=== PATIENT | female | born 1945 | race Caucasian/White ===

== ENCOUNTER 2016-11-02 00:56 | Emergency (ER) | payer MEDICARE, OTHER ==
[2016-11-02] MEDS ORDERED: MAGNESIUM HYDROXIDE/AL HYDROX 30 ML UDC PO ONE (01:28)
[2016-11-02] MEDS ORDERED: Lidocaine 2%Visc 15ml 20 MG/ML UDC ONE (01:28)
[2016-11-02] MEDS ORDERED: 0.9 % SODIUM CHLORIDE 50 ML IV ONE (01:33)
[2016-11-02] MEDS ORDERED: PANTOPRAZOLE SODIUM INJ. 40 MG VIAL ONE (01:33)
[2016-11-02] MEDS: MAG HYDROX/AL HYDROX/SIMETH 30 ML, Lidocaine 2%Visc 15ml 20 MG, PHENobarb/HYOSCY/ATROPI... PO ONE ×3 (01:40)
[2016-11-02] MEDS: PANTOPRAZOLE SODIUM 40 MG in 0.9 % SODIUM CHLORIDE 50 ML IV SCH (01:40)
[2016-11-02 01:42] LABS: BASOPHILS % 0.5 (0.0-1.5); EOSINOPHILS % 2.2 % (0.0-6.8); LYMPHOCYTES # 3.3 # k/uL (0.6-4.0); MEAN CORPUSCULAR HEMOGLOBIN 32.2 pg (28.0-34.0); MONOCYTES # 0.3 # k/uL (0.0-0.9); MONOCYTES % 3.7 % (0.0-11.0); NEUTROPHILS # 4.9 # k/uL (1.4-7.7)
[2016-11-02 01:53] LABS: eGFR (African) > 60; eGFR (Non-African) > 60
--- NOTE | 2016-11-02 02:29 | ED Physician Documentation ---
General Adult - HISTORIAN Historian: patient - HPI Stated Complaint: sudden onset of abd pain Chief Complaint: General Adult Onset: hours Timing: still present Severity: moderate Further Comments: yes (Pt is a 71 yo female with fairly rapid onset of epigastric pain. No chest pain per se or unusual sob. Pt had mild transient nausea.) - ROS CONST: no problems EYES/ENT: none CVS/RESP: shortness of breath (chronic). denies: chest pain GI/: abdominal pain (epigastric), nausea (mild) MS/SKIN/LYMPH: none - PAST HX Past History: other (DM, COPD on home O2 at night, hypothyroidism, fibromyalgia , mitral valve prolapse.) Surgeries/Procedures: other (ortho) Allergies/Adverse Reactions: Allergies Allergy/AdvReac Type Severity Reaction Status Date / Time erythromycin base Allergy Verified 11/02/16 01:18 Home Medications: Ambulatory Orders Medication Instructions Recorded Ranitidine HCl 150 mg PO BID #60 tablet 11/02/16 - SOCIAL HX Smoking History: cigarettes - FAMILY HX Family History: No - VITAL SIGNS Vital Signs: Vital Signs Temp Pulse Resp BP Pulse Ox 98.4 F 85 20 132/55 90 L 11/02/16 00:56 11/02/16 02:00 11/02/16 00:56 11/02/16 00:56 11/02/16 02:00 - REVIEWED ASSESSMENTS Nursing Assessment Reviewed: Yes Vitals Reviewed: Yes Progress - Progress Progress: CXR: No acute process. Abd x-ray: 1. Mild moderate in stool within the colon. 2. No evidence of bowel obstruction. GI cocktail Protonix 40 mg IV sx resolved Rx Ranitidine 150 mg po bid. f/u pcp. - EKG/XRAY/CT EKG: NSR (HR=80; non-specific T-wave abnormality.) ED Results Lab/Radiology - Lab Results Lab Results: Lab Results 11/02/16 11/02/16 11/02/16 01:35 01:34 01:34 WBC 8.80 K/ul K/ul (4.00-12.00) RBC 4.66 M/ul M/ul (3.90-5.20) Hgb 15.0 g/dL g/dL (12.0-16.0) Hct 44.5 % % (34.5-46.5) MCV 95.4 fl fl (80.0-100.0) MCH 32.2 pg pg (28.0-34.0) MCHC 33.7 g/dL g/dL (30.0-36.0) RDW 13.1 % % (11.3-14.3) Plt Count 323 K/mm3 K/mm3 (130-400) Neut % (Auto) 54.9 % % (39.0-79.0) Lymph % (Auto) 37.0 % % (16.0-50.0) [place] % (Auto) 3.7 % % (0.0-11.0) Eos % (Auto) 2.2 % % (0.0-6.8) Baso % (Auto) 0.5 (0.0-1.5) Neut # 4.9 # k/uL # k/uL (1.4-7.7) Lymph # 3.3 # k/uL # k/uL (0.6-4.0) [place] # 0.3 # k/uL # k/uL (0.0-0.9) Eos # 0.2 # k/uL # k/uL (0.0-0.6) Baso # 0.0 # k/uL # k/uL (0.0-0.5) Reactive Lymphs % 1.6 % % (0.0-5.0) Reactive Lymphs # 0.1 # k/uL # k/uL (0.0-0.8) Sodium 145 mmol/L mmol/L (136-145) Potassium 3.7 mmol/L mmol/L (3.5-5.0) Chloride 104 mmol/L mmol/L (98-110) Carbon Dioxide 34 mmol/L H mmol/L (20-32) BUN 14 mg/dL mg/dL (10-26) Creatinine 0.6 mg/dL mg/dL (0.4-1.5) Est GFR ( Amer) > 60 (60 - ) Est GFR (Non-Af Amer) > 60 (60 - ) Glucose 105 mg/dL H mg/dL (70-99) Calcium 9.9 mg/dL mg/dL (8.5-10.5) Total Bilirubin 0.4 mg/dL mg/dL (0.2-1.2) AST 112 U/L H U/L (0-41) ALT 50 U/L H U/L (0-45) Alkaline Phosphatase 69 U/L U/L (46-116) Creatine Kinase 28 U/L U/L (0-225) Troponin I < 0.03 ng/mL L ng/mL (0.03-0.06) Total Protein 7.6 g/dL g/dL (6.0-8.5) Albumin 4.6 g/dL g/dL (3.0-5.5) Amylase 28 U/L U/L (20-104) - Orders Orders: ED Orders Category Date Time Status Continuous EKG monitoring Q30M Care 11/02/16 01:27 Active Continuous Pulse Oximetry Q30M Care 11/02/16 01:[address] Saline Lock/IV NOW Care 11/02/16 01:27 Active ABDOMEN 1 VIEW [RAD] Stat Exams 11/02/16 Taken CHEST 1 VIEW [RAD] Stat Exams 11/02/16 01:27 Taken AMYLASE Routine Lab 11/02/16 01:35 Completed CBC/PLATELET/DIFF Routine Lab 11/02/16 01:34 Completed CMP Routine Lab 11/02/16 01:35 Completed CREATINE KINASE Routine Lab 11/02/16 01:35 Completed TROPONIN I (cTnI) Stat Lab 11/02/16 01:34 Completed 0.9 % Sodium Chloride [Sodium Chloride] 50 ml Med 11/02/16 01:33 Discontinued IV .STK-MED Lidocaine 2%Visc 15ml [Xylocaine] Med 11/02/16 01:28 Discontinued 300 mg .ROUTE .STK-MED ONE Mag Hydrox/Al Hydrox/Simeth [Mylanta] 30 ml Med 11/02/16 01:29 Discontinued Lidocaine 2%Visc 15ml [Xylocaine] 20 mg PHENobarb/HYOSCY/ATROPINE/SCOP [] 10 ml PO NOW Magnesium Hydroxide/Al Hydrox [Maalox] Med 11/02/16 01:28 Discontinued 30 ml PO .STK-MED ONE Pantoprazole Sodium [Protonix] Med 11/02/16 01:33 Discontinued 40 mg .ROUTE .STK-MED ONE Pantoprazole Sodium [Protonix] 40 mg Med 11/02/16 09:00 Ordered 0.9 % Sodium Chloride [Sodium Chloride] 50 ml IV DAILY EKG WITH COMPARISON Stat Ther 11/02/16 01:27 Ordered General Adult Physical Exam - PHYSICAL EXAM GENERAL APPEARANCE: moderate distress EENT: ENT inspection normal NECK: normal inspection, supple RESPIRATORY: no resp distress, chest non-tender, breath sounds normal CVS: reg rate & rhythm, heart sounds normal ABDOMEN: soft, no organomegaly, tenderness (epigastric), decreased BS BACK: normal inspection, no CVA tenderness SKIN: warm/dry, normal color EXTREMITIES: non-tender, normal range of motion, no evidence of injury NEURO: oriented X3, motor nml, sensation nml Discharge Clincal Impression: GERD (gastroesophageal reflux disease) Qualifiers: Esophagitis presence: esophagitis presence not specified Qualified Code(s): K21.9 - Gastro-esophageal reflux disease without esophagitis Prescriptions: Ranitidine HCl 150 mg PO BID #60 tablet Referrals: Jannette Mason MD [Primary Care Provider] - 2 Days Home Medications: Ambulatory Orders Ranitidine HCl 150 mg PO BID #60 tablet 11/02/16 Condition: Good Disposition: 01 HOME, SELF-CARE Decision to Admit: NO Decision Time: 02:29
[2016-11-02 02:50] VITALS: BP 97/51
--- NOTE | 2016-11-02 05:49 | Diagnostic Imaging Report ---
Report Submission Date: Nov 02, 2016 2:08:21 AM COUNTER INTELLIGENCE Patient ~ Study Name: SARAHI HAWKINS ~ Date: Nov 02, 2016 1:51:12 AM COUNTER INTELLIGENCE ~ Modality Type: CR Gender: F ~ Description: ABDOMEN : 49 ~ Institution: [facility] Physician: ROMANA SAN ~ ~ ~ ~ Abdomen AP view. History: Pain. Findings: The bowel gas pattern is normal without obstruction. Mild amount of retained stool present. There is levoscoliosis and lumbar spondylosis noted. There is evidence of previous internal fixation of the right proximal femur. Impression: 1. Mild moderate in stool within the colon. 2. No evidence of bowel obstruction. ~ Electronically signed on Nov 02, 2016 2:08:21 AM COUNTER INTELLIGENCE by: Adalid JEREZ
--- NOTE | 2016-11-02 05:50 | Diagnostic Imaging Report ---
Report Submission Date: Nov 02, 2016 2:09:16 AM RECIPROCATING DRILL OPERATOR Patient ~ Study Name: SARAHI HAWKINS ~ Date: Nov 02, 2016 1:52:36 AM RECIPROCATING DRILL OPERATOR ~ Modality Type: CR Gender: F ~ Description: CHEST : 49 ~ Institution: [facility] Physician: ROMANA SAN ~ ~ ~ ~ Chest, 1 view History: ~Chest pain Findings: Comparison is made to examinations arch 2015. The lungs remain hyperinflated. ~The heart size is normal. Calcified granulomas are present in the lung. Otherwise, the lungs are clear. There is no pleural effusion or pneumothorax identified. The osseous structures are normal. Impression: 1. No acute pulmonary disease. ~ Electronically signed on Nov 02, 2016 2:09:16 AM RECIPROCATING DRILL OPERATOR by: Adalid JEREZ
== END 2016-11-02 02:40 | disposition home or self-care (01) ==
LOC: ED 00:56
DX: K21.9 Gastro-esophageal reflux disease without esophagitis (principal)
CPT/HCPCS: 71010; 74000; 80053; 82150; 82550; 84484; 85025; 93005; A9270; 96365; 99283; 99284; S1016

== ENCOUNTER 2016-11-04 18:31 | Emergency (ER) | payer MEDICARE, OTHER ==
[2016-11-04] MEDS ORDERED: 0.9 % SODIUM CHLORIDE 1,000 ML IV ONE (19:28)
[2016-11-04] MEDS ORDERED: KETOROLAC TROMETHAMINE 30 MG/1ML VIAL IVP ONE (19:28)
[2016-11-04] MEDS ORDERED: HYOSCYAMINE SULFATE 0.125 MG TAB.SUBL SL ONE (19:28)
[2016-11-04] MEDS ORDERED: METOCLOPRAMIDE HCL 5 MG TABLET PO ONE (19:30)
[2016-11-04] MEDS ORDERED: Lidocaine 2%Visc 15ml 20 MG/ML UDC PO ONE (19:32)
[2016-11-04] MEDS ORDERED: MAG HYDROX/AL HYDROX/SIMETH 30 ML UDC PO ONE (19:33)
[2016-11-04] MEDS ORDERED: PANTOPRAZOLE SODIUM 40 MG TABLET PO ONE (21:56)
[2016-11-04 22:29] VITALS: BP 108/61
[2016-11-05 06:06] LABS: APPEARANCE,URINE CLEAR (CLEAR); COLOR,URINE AMBER (YELLOW); OCCULT BLOOD,URINE TRACE-INTACT (NEGATIVE); PH URINE 5.5 (5.0 - 8.0); UROBILINOGEN URINE 0.2 Eu (0.2-1.0)
--- NOTE | 2016-11-05 10:28 | ED Physician Documentation ---
Abdominal Pain - HISTORIAN Historian: patient - HPI Stated Complaint: N/V Chief Complaint: Abdominal Pain Additonal Information: right upper quadrant and n/v Onset: days ago (2) Duration: waxing, waning Timing: other (had resolved, now back) Context: denies: out of country travel, bad food, recent trauma Severity: moderate Quality: pain, sharp Associated Symptoms: nausea, vomiting Exacerbated by: nothing Relieved by: nothing Further Comments: no - ROS CONST: no problems GI/: none CVS/RESP: none EYES/ENT: none MS/SKIN/LYMPH: ankle swelling NEURO/PSYCH: none - SOCIAL HX Smoking History: secondhand, cigarettes Alcohol Use: none Drug Use: none - FAMILY HX Family History: no significant history - PAST HX Past History: peptic ulcer, GERD Ischemic Bowel Risk Factors: none Other History: diabetes Type 2 Surgeries/Procedures: none Immunizations: referred to PCP Home Medications: Ambulatory Orders Medication Instructions Recorded Ranitidine HCl 150 mg PO BID #60 tablet 11/02/16 Allergies/Adverse Reactions: Allergies Allergy/AdvReac Type Severity Reaction Status Date / Time erythromycin base AdvReac Nausea/Vomi Verified 11/04/16 19:13 ting - VITAL SIGNS Vital Signs: Vital Signs Temp Pulse Resp BP Pulse Ox 97.7 F 86 18 108/61 95 11/04/16 22:00 11/04/16 22:00 11/04/16 22:00 11/04/16 22:00 11/04/16 22:00 - REVIEWED ASSESSMENTS Nursing Assessment Reviewed: Yes Vitals Reviewed: Yes Progress - Results/Orders Results/Orders: ua, ct abdpmen/pelvis ordered - Progress Progress: pt. given 40 mg Protonix p.o., hyoscyamine 0.25 mg p.o., Toradol 30 mg IV, Reglan 10 mg IV, 0.9 ns 1 liter ivpb, 2% viscous lidocaine 15 cc p.o. and 30 cc Mylanta p.o. in er with improvement Critical Care Note - Critical Care Note Total Time (mins): 0 ED Results Lab/Radiology - Lab Results Lab Results: Lab Results 11/04/16 20:45 Urine Color Mei (YELLOW) Urine Appearance Clear (CLEAR) Urine pH 5.5 (5.0 - 8.0) Ur Specific [place] 1.010 (1.010-1.030) Urine Protein Negative mg/dL mg/dL (NEGATIVE) Urine Ketones Trace mg/dL H mg/dL (NEGATIVE) Urine Occult Blood Trace-intact H (NEGATIVE) Urine Nitrite Negative (NEGATIVE) Urine Bilirubin 2+ H (NEGATIVE) Urine Urobilinogen 0.2 Eu Eu (0.2-1.0) Ur Leukocyte Esterase Negative (NEGATIVE) Urine Glucose Negative mg/dL mg/dL (NEGATIVE) - Radiology Radiology Impressions: ct scan of abdomen shows no pathology relevant to pt's symptoms - Orders Orders: ED Orders Category Date Time Status Place Saline Lock/IV Now Care 11/04/16 19:[address] ABD & PELVIS W/ CON Routine Exams 11/04/16 19:31 Taken UA MACRO DIP ONLY Routine Lab 11/04/16 20:45 Completed 0.9 % Sodium Chloride [Normal Saline] 1,000 ml Med 11/04/16 19:28 Discontinued IV Q1H Hyoscyamine Sulfate [Oscimin Sl] Med 11/04/16 19:28 Discontinued 0.25 mg SL NOW ONE Ketorolac Tromethamine [Toradol] Med 11/04/16 19:28 Discontinued 30 mg IVP NOW ONE Lidocaine 2%Visc 15ml [Xylocaine] Med 11/04/16 19:32 Discontinued 30 mg PO NOW ONE Mag Hydrox/Al Hydrox/Simeth [Mylanta] Med 11/04/16 19:33 Discontinued 30 ml PO NOW ONE Metoclopramide HCl [Reglan] Med 11/04/16 19:30 Discontinued 10 mg PO NOW ONE Pantoprazole Sodium [Protonix] Med 11/04/16 21:56 Discontinued 40 mg PO NOW ONE Abdominal Pain Physical Exam - Physical Exam General Appearance: alert, moderate distress EENT: eye inspection normal, ENT inspection normal, pharynx normal, no signs of dehydration, ALIE, no nystagmus, TM's nml NECK: normal inspection, thyroid normal, supple RESPIRATORY: no resp distress, chest non-tender, breath sounds normal CVS: reg rate & rhythm, heart sounds normal, equal pulses, no murmur, no gallop , PMI nml, no JVD, no friction rub ABDOMEN: soft, no organomegaly, normal bowel sounds, no abdominal bruit, no distension, tenderness (right upper quadrant and epigastrium) BACK: normal inspection, no CVA tenderness SKIN: warm/dry, normal color EXTREMITIES: non-tender, normal range of motion, no evidence of injury, no edema NEURO: oriented X3, CN's nml as tested, motor nml, sensation nml, mood/affect nml, cognition normal Vital Signs: Vital Signs Temp Pulse Resp BP Pulse Ox 97.7 F 86 18 108/61 95 11/04/16 22:00 11/04/16 22:00 11/04/16 22:00 11/04/16 22:00 11/04/16 22:00 Discharge Clincal Impression: Duodenitis Referrals: Jannette Mason MD [Primary Care Provider] - 2 Days Home Medications: Ambulatory Orders Ranitidine HCl 150 mg PO BID #60 tablet 11/02/16 Comments: ischarged in stable and improved condition with scripts for Protonix 40 mg 1 p.o. daily #15, Bentyl 20 #10 1 p.o. qid prn pain. Condition: Stable Disposition: 01 HOME, SELF-CARE Decision to Admit: NO Decision Time: 21:50
--- NOTE | 2016-11-05 11:14 | Diagnostic Imaging Report ---
BOB GREY [facility] [address] [facility] [address] [place], [place]. [address] Report Submission Date: Nov 04, 2016 8:58:27 PM GROCERY SUPERVISOR Patient Study Name: SARAHI HAWKINS Date: Nov 04, 2016 8:28:49 PM GROCERY SUPERVISOR Modality Type: CT\SR Gender: F Description: CT ABD & PELVIS W/ CON : 49 Institution: [facility] Physician: BOB GREY CT abdomen and pelvis with contrast Date of study: November 04, 2016. CLINICAL HISTORY: CT A/P WITH CONTRAST, ABDOMINAL PAIN, NAUSEA/ VOMITING (Hx) / ABD PAIN (DICOM Hx) TECHNIQUE: 1.3 mm and 5 mm contiguous axial images of the abdomen and pelvis with IV contrast. With; 87 CC OMNIPAQUE FINDINGS: There are no comparison studies. The lung bases are clear. Abdomen: The liver, pancreas and spleen are normal in appearance. The gallbladder is unremarkable. The kidneys enhance appropriately and symmetrically. The aorta is normal in caliber. The small and large bowel are nondistended. There is no evidence of free air or free fluid. Pelvis: There is a 2.6 cm size mass in the cecum that may represent lipomatous hypertrophy of the ileocecal valve, however, malignancy cannot be excluded and correlation with followup colonoscopy is recommended. The distal ureters and bladder are normal. There is no evidence of free air or free fluid. Diverticulosis of sigmoid colon is present without evidence of inflammatory changes to suggest acute diverticulitis. The remaining pelvic structures are within normal limits and the bones of the pelvis are intact. There is artifact associated with a right femoral fixation screw. Multilevel degenerative lumbar spondylosis as noted. There is disc bulging at L2/L3, L3/L4 and L4/L5. IMPRESSION: 2.6 cm size mass in the cecum that may represent hypertrophy of the ileocecal valve, however, correlation with followup colonoscopy is recommended. Sigmoid colon diverticulosis. Electronically signed on Nov 04, 2016 8:58:27 PM GROCERY SUPERVISOR by: Juan Daniel JEREZ
== END 2016-11-04 22:00 | disposition home or self-care (01) ==
LOC: ED 18:31
DX: K29.80 Duodenitis without bleeding (principal)
CPT/HCPCS: 74177; 81002; A9270; J1885; J7030; Q9966; 96361; 96374; 96375; 99283; 99284; S1016

== ENCOUNTER 2016-12-22 09:23 | Outpatient (CLI) | payer MEDICARE, OTHER ==
[2016-12-22 10:17] LABS: eGFR (African) > 60; eGFR (Non-African) > 60
== END 2016-12-22 09:24 ==
LOC: LAB 09:23
PROVIDERS: ATTEND Family Medicine
DX: E11.9 Type 2 diabetes mellitus without complications (principal); E03.9 Hypothyroidism, unspecified
CPT/HCPCS: 36415; 80053; 80061; 83036; 84443

== ENCOUNTER 2017-03-13 09:45 | Emergency (ER) | payer MEDICARE, OTHER ==
[2017-03-13] MEDS ORDERED: 0.9 % SODIUM CHLORIDE 500 ML IV ONE (10:12)
[2017-03-13] MEDS ORDERED: ONDANSETRON HCL/PF 4 MG/ 2ML VIAL IVP ONE (10:13)
[2017-03-13] MEDS ORDERED: MAG HYDROX/AL HYDROX/SIMETH 30 ML, Lidocaine 2%Visc 15ml 20 MG, PHENobarb/HYOSCY/ATROPI... PO ONE ×3 (10:16)
[2017-03-13] MEDS ORDERED: Lidocaine 2%Visc 15ml 20 MG/ML UDC ONE (10:19)
[2017-03-13] MEDS ORDERED: MAGNESIUM HYDROXIDE/AL HYDROX 30 ML UDC PO ONE (10:19)
[2017-03-13] MEDS ORDERED: PANTOPRAZOLE SODIUM INJ. 40 MG VIAL ONE (10:30)
[2017-03-13] MEDS ORDERED: 0.9 % SODIUM CHLORIDE 50 ML IV ONE (10:30)
[2017-03-13 10:37] LABS: APPEARANCE,URINE Clear (CLEAR); COLOR,URINE Amber (YELLOW); OCCULT BLOOD,URINE Trace-intact (NEGATIVE); UROBILINOGEN URINE 0.2 Eu (0.2-1.0)
[2017-03-13 10:40] LABS: BASOPHILS % 0.4 (0.0-1.5); EOSINOPHILS % 0.5 % (0.0-6.8); MEAN CORPUSCULAR HEMOGLOBIN 29.5 pg (28.0-34.0); MEAN CORPUSCULAR VOLUME 94.5 fl (80.0-100.0); MONOCYTES % 2.9 % (0.0-11.0)
[2017-03-13 10:55] LABS: eGFR (African) > 60; eGFR (Non-African) > 60
[2017-03-13] MEDS ORDERED: PANTOPRAZOLE SODIUM 40 MG in 0.9 % SODIUM CHLORIDE 50 ML IV SCH (11:00)
[2017-03-13] MEDS ORDERED: 0.9 % SODIUM CHLORIDE 1,000 ML IV ONE (11:40)
--- NOTE | 2017-03-13 12:03 | ED Physician Documentation ---
General Adult - HISTORIAN Historian: patient - HPI Stated Complaint: Nausea Chief Complaint: General Adult Onset: days ago (1) Timing: still present Severity: moderate Further Comments: yes (Pt is a 72 yo female with abd pain and nausea. Pt has had similar sx in the past, which were attributed to IBS or GERD. Pt has temp 99.1 on presentation. Pt has had normal bm's and voids.) - ROS CONST: other (malaise) EYES/ENT: none CVS/RESP: none GI/: abdominal pain, vomiting, nausea MS/SKIN/LYMPH: none - PAST HX Past History: other (COPD, Depression, DM, Fibromyalgia, GERD, Thyroid d/o) Surgeries/Procedures: other (R TKA, R hip, partial hysterectomy) Allergies/Adverse Reactions: Allergies Allergy/AdvReac Type Severity Reaction Status Date / Time erythromycin base AdvReac Nausea/Vomi Verified 03/13/17 09:58 ting Home Medications: Ambulatory Orders Medication Instructions Recorded Ranitidine HCl 150 mg PO BID #60 tablet 11/02/16 Pantoprazole Sodium [Protonix] 40 mg PO DAILY 03/13/17 - SOCIAL HX Smoking History: cigarettes - FAMILY HX Family History: No - VITAL SIGNS Vital Signs: Vital Signs Temp Pulse Resp BP Pulse Ox 98.3 F 95 H 16 102/55 94 03/13/17 10:01 03/13/17 10:01 03/13/17 10:01 03/13/17 10:01 03/13/17 10:01 - REVIEWED ASSESSMENTS Nursing Assessment Reviewed: Yes Vitals Reviewed: Yes Progress - Progress Progress: NS 500 cc IVF bolus, then 100 cc/hr Zofran 4 mg IV GI cocktail Rocephin 1 gm IV Transfer to [facility], Dr. Starr. General Adult Physical Exam - PHYSICAL EXAM GENERAL APPEARANCE: moderate distress EENT: eye inspection normal, pharynx normal NECK: normal inspection, supple RESPIRATORY: no resp distress, chest non-tender, breath sounds normal CVS: reg rate & rhythm, heart sounds normal ABDOMEN: soft, tenderness (moderate mid abd tenderness), decreased BS BACK: normal inspection, no CVA tenderness SKIN: warm/dry, normal color EXTREMITIES: non-tender NEURO: oriented X3, motor nml, sensation nml Discharge Clincal Impression: pancreatitis with elevated LFT's Referrals: Jannette Mason MD [Primary Care Provider] - Home Medications: Ambulatory Orders Ranitidine HCl 150 mg PO BID #60 tablet 11/02/16 Pantoprazole Sodium [Protonix] 40 mg PO DAILY 03/13/17 Condition: Stable Disposition: XFER SHT-TRM HOSP Decision to Admit: NO Decision Time: 12:01
[2017-03-13] MEDS ORDERED: 0.9 % SODIUM CHLORIDE 1,000 ML IV SCH (12:30)
[2017-03-13] MEDS ORDERED: fentaNYL CITRATE/PF 100 MCG/ 2ML AMP IVP ONE (12:30)
[2017-03-13 12:32] VITALS: BP 112/56
[2017-03-13] MEDS ORDERED: fentaNYL CITRATE/PF 100 MCG/ 2ML AMP ONE (12:35)
== END 2017-03-13 12:30 | disposition short-term general hospital (02) ==
LOC: ED 09:45
DX: K85.80 Other acute pancreatitis without necrosis or infection (principal)
CPT/HCPCS: 80053; 81002; 82150; 85025; A9270; J0696; J2405; J3010; J7030; J7060; 96361; 96372; 96376; 99283; S1016

== ENCOUNTER 2017-04-07 11:08 | Outpatient (CLI) | payer MEDICARE, OTHER | END 2017-04-07 11:10 | LOC: OUT 11:08 | PROVIDERS: ATTEND Colon & Rectal Surgery | DX: Z90.49 Acquired absence of other specified parts of digestive tract (principal) | CPT/HCPCS: G0463 ==

== ENCOUNTER 2018-04-07 10:00 | Outpatient (CLI) | payer MEDICARE, OTHER ==
[2018-04-07 11:08] LABS: eGFR (African) > 60; eGFR (Non-African) > 60
== END 2018-04-07 10:05 ==
LOC: LAB 10:00
PROVIDERS: ATTEND Family Medicine
DX: E11.9 Type 2 diabetes mellitus without complications (principal); E03.9 Hypothyroidism, unspecified
CPT/HCPCS: 36415; 80053; 80061; 83036; 84443

== ENCOUNTER 2019-03-01 13:51 | Outpatient (CLI) | payer MEDICARE, OTHER ==
[2019-03-19 09:53] LABS: A1C 5.3 % (<5.7); TSH 0.13 mIU/l (0.465-4.685)
== END 2019-03-01 13:56 | disposition home or self-care (01) ==
LOC: LAB 13:51
PROVIDERS: ATTEND Family Medicine
DX: E03.9 Hypothyroidism, unspecified (principal); E11.9 Type 2 diabetes mellitus without complications
CPT/HCPCS: 36415; 83036; 84443

== ENCOUNTER 2019-09-11 13:34 | Outpatient (CLI) | payer MEDICARE, OTHER ==
--- NOTE | 2019-09-11 20:28 | Diagnostic Imaging Report ---
PATIENT MR#: [id number] PATIENT PATIENT NAME: SARAHI HAWKINS DATE OF : 1945 REFERRING PHYSICIAN: Jannette Mason EXAM DATE: 09/11/2019 ACCESSION NUMBER: [id number] EXAM DESCRIPTION: SHOULDER 2 VIEWS OR MORE CLINICAL HISTORY: CHRONIC LEFT SHOULDER PAIN COMPARISON: No study for comparison is available at the time of interpretation. TECHNIQUE: DX left shoulder, 3 views Osseous structures: The osseous structures are normal with no evidence of fracture or dislocation. Th ere is no osseous lesion or periosteal reaction. Joint spaces: Mild degenerative arthrosis of the inferior glenohumeral joint. Soft tissues: Bilateral calcified hilar lymph nodes and left upper lobe pulmonary granulomas incident ally noted. IMPRESSION: Mild glenohumeral arthrosis. Read by: Dr. Wu Dove Transcribed by: Wu Dove Transcribed Date: 09/11/2019 8:27:48 PM Electronically signed by: Dr. Wu Dove Date signed: 09/11/2019 8:27:48 PM
== END 2019-09-11 13:44 ==
LOC: RAD 13:34
PROVIDERS: ATTEND Family Medicine
DX: M25.512 Pain in left shoulder (principal)
CPT/HCPCS: 73030